=== PATIENT | female | born 1955 | race Caucasian/White ===

== ENCOUNTER → 2016-11-25 | Outpatient (CLI) | payer BC ==
[~2016-11-25] MED LIST: ACIPHEX20 MG; FLEXERIL10 MG PO; HYDROCODON-ACE1 EAC7 PO; LEXAPRO; MELATONIN1 MG PO; NEXIUM; OMEPRAZOLE20 M1 PO
--- NOTE | ~2016-11-25 | US5 ---
[facility] A Service of [facility] / [facility] RADIOLOGY TEXT RESULTS PATIENT: JJ HEATON LOCATION: [facility] : 55 UNIT #: [id number] AGE: [address]: RASHEED SCHNEIDER APRN SEX: F ORDER DR: [id number] [facility] [address] [place], [place] [address] [id number] O MR#: [id number] Acc #: [id number] NAME: JJ HEATON. : 1955 SEX: F STUDY DATE/TIME: 11/25/2016 11:26 UNIT: [facility] ROOM: STUDY DESCRIPTION: US Abdominal Complete Attending Physician: Rasheed Schneider Aprn Referring Physician: Rasheed Schneider Aprn Ordering Physician: Rasheed Schneider Aprn Primary Care Physician: Tabby Schneider M.D. MEDICAL IMAGING REPORT This report is preliminary unless electronic signature is present EXAM Abdominal ultrasound INDICATIONS Epigastric right upper quadrant pain for 1 year. This got worse recently. TECHNIQUE Hill-scale, color Doppler and spectral Doppler waveform analysis was performed through the abdomen. FINDINGS The kidneys are normal in appearance. No solid or cystic renal vein masses are identified. There is no hydronephrosis. Patient's gallbladder also appears normal with no stones or sludge identified. There is no gallbladder wall thickening or pericholecystic fluid. [employer] Coach questions hepatic steatosis. This is not well demonstrated on the submitted images. Certainly, however, they do appear enlarged measuring up to 7.3 cm in craniocaudal dimensions. No focal hepatic lesions are seen. The abdominal aorta measures within normal size limits. Spleen also measures within normal size limits as does the pancreas. IMPRESSION 1. 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 This is certainly not well demonstrated on the submitted images, although the patient does appear to have hepatomegaly. Dictated by... Ely Mishra M.D. THIS IS AN ELECTRONICALLY VERIFIED REPORT Ely Mishra M.D. at 11/26/2016 5:01 PM AFF/pcl [facility] A Service of [facility] RADIOLOGY TEXT RESULTS PATIENT: JJ HEATON LOCATION: [facility] #: [id number] : 55 UNIT #: [id number] AGE: [address]: RASHEED SCHNEIDER APRN SEX: F ORDER DR: TD: 11/25/2016 22:08 JOB #: [id number] MEDICAL IMAGING REPORT Page 1 of 1 COPY
[2016-11-25 11:57] LABS: HEMATOCRIT 43.3 % (35.0-45.0); HEMOGLOBIN 14.1 gm/dL (12.0-16.0); MEAN CELL VOLUME 90.8 FL (83-96); MEAN CORPUSCULAR HEMOGLOBIN 29.6 PG (28-34); MEAN CORPUSCULAR HGB CONC 32.6 g/dL (30-36); MEAN PLATELET VOLUME 8.2 FL (6.5-11.5); RED BLOOD COUNT 4.77 X10e (3.90-5.30); RED CELL DISTRIBUTION WIDTH 14.4 % (11.0-15.5); WHITE BLOOD COUNT 5.8 X10e3 (4.0-10.5)
[2016-11-25 12:54] LABS: ALBUMIN SERUM 4.3 g/dL (3.5-5.0); BILIRUBIN,TOTAL 0.3 mg/dL (0.2-2.0); CALCIUM SERUM 10.1 mg/dL (8.4-10.2); CREATININE SERUM 0.8 mg/dL (0.6-1.4); GLOM FILT RATE Estimated 79.6 mL/min (>60); POTASSIUM 4.8 mmol/L (3.5-5.1); PROTEIN TOTAL SERUM 7.4 g/dL (6.0-8.3)
== END | disposition home or self-care (01) ==
LOC: CLAB 10:00 → CGUS 10:00
PROVIDERS: Nurse Practitioner
DX: R10.11 Right upper quadrant pain (principal)
CPT/HCPCS: 36415; 76700; 80053; 85027